=== PATIENT | female | born 1955 | race Caucasian/White ===

== ENCOUNTER 2017-11-02 18:53 | Emergency (ER) | payer OTHER ==
[2017-11-02] MEDS ORDERED: NITROGLYCERIN SUBLINGUAL 0.4 MG BOTTLE OF 25. SL ×2 (19:15→21:00)
[2017-11-02 19:31] LABS: ADD MAN DIFF? NO
[2017-11-02] MEDS: ASPIRIN CHEWABLE 81 MG TABLET. PO (19:32)
[2017-11-02 19:34] LABS: BASO % 1 % (0-3); EOS # 0.1 x10^3/uL (0.0-0.7); EOS % 3 % (0-3); HEMATOCRIT 41.9 % (36.0-47.0); HEMOGLOBIN 14.4 g/dL (12.0-15.5); LYMPH # 2.2 x10^3/uL (1.0-4.8); LYMPH % 42 % (24-48); MEAN CORPUSCULAR HEMOGLOBIN 32 pg (25-35); MEAN CORPUSCULAR HGB CONC 34 g/dL (31-37); MEAN CORPUSCULAR VOLUME 92 fL (79-100); MONO # 0.4 x10^3/uL (0.0-1.1); MONO % 8 % (0-9); NEUT # 2.5 x10^3uL (1.8-7.7); NEUT % 47 % (31-73); PLATELET COUNT 270 x10^3/uL (140-400); RED BLOOD COUNT 4.57 x10^6/uL (3.50-5.40); RED CELL DISTRIBUTION WIDTH 12.6 % (11.5-14.5); WHITE BLOOD COUNT 5.4 x10^3/uL (4.0-11.0)
[2017-11-02 19:44] LABS: ANION GAP 8 (6-14); BLOOD UREA NITROGEN 11 mg/dL (7-20); CALCIUM 8.9 mg/dL (8.5-10.1); CARBON DIOXIDE 29 mmol/L (21-32); CHLORIDE 105 mmol/L (98-107); CREATININE 0.8 mg/dL (0.6-1.0); GFR 72.9; GLUCOSE 91 mg/dL (70-99); POTASSIUM 3.6 mmol/L (3.5-5.1); SODIUM 142 mmol/L (136-145)
[2017-11-02 19:45] LABS: PARTIAL THROMBOPLASTIN TIME 27 SEC (24-38); PROTHROMBIN TIME PATIENT 12.9 SEC (11.7-14.0)
[2017-11-02 19:48] LABS: D-DIMER 0.33 ug/mlFEU (0.00-0.50)
[2017-11-02 19:54] LABS: TROPONINI < 0.017 ng/mL (0.000-0.055)
[2017-11-02] MEDS: IV NORMAL SALINE 1000ML BAG 1,000 ML IV (21:04)
== END 2017-11-02 23:04 | disposition home or self-care (01) ==
LOC: ER 18:53
DX: R07.2 Precordial pain (principal); K21.9 Gastro-esophageal reflux disease without esophagitis; J45.909 Unspecified asthma, uncomplicated
CPT/HCPCS: 36415; 71045; 80048; 84484; 85025; 85379; 85610; 85730; 93005; 99285-25; J7030

== ENCOUNTER 2018-05-30 05:16 | Observation (INO) | payer OTHER ==
[~2018-05-30] VITALS: Ht 172.7 cm; Wt 71.7 kg
[~2018-05-30 05:16] MED LIST: ACET325T9 PO; FAMO-63 PO; IBUP200T44 PO; PANT40TA3 PO
[2018-05-30 06:11] LABS: CREATININE 0.8 mg/dL (0.6-1.0); GFR 72.9; POTASSIUM 3.9 mmol/L (3.5-5.1)
[2018-05-30 06:16] LABS: ALBUMIN 3.7 g/dL (3.4-5.0); ALBUMIN/GLOBULIN RATIO 1.2 (1.0-1.7); TOTAL BILIRUBIN 0.4 mg/dL (0.2-1.0); TOTAL PROTEIN 6.8 g/dL (6.4-8.2)
[2018-05-30 06:33] LABS: BASO % 1 % (0-3); EOS # 0.1 x10^3/uL (0.0-0.7); EOS % 3 % (0-3); HEMATOCRIT 42.8 % (36.0-47.0); LYMPH # 1.9 x10^3/uL (1.0-4.8); LYMPH % 47 % (24-48); MEAN CORPUSCULAR HEMOGLOBIN 30 pg (25-35); MEAN CORPUSCULAR HGB CONC 33 g/dL (31-37); MEAN CORPUSCULAR VOLUME 93 fL (79-100); MONO # 0.3 x10^3/uL (0.0-1.1); MONO % 9 % (0-9); NEUT # 1.6 x10^3uL (1.8-7.7); NEUT % 40 % (31-73); PLATELET COUNT 261 x10^3/uL (140-400); RED BLOOD COUNT 4.62 x10^6/uL (3.50-5.40); RED CELL DISTRIBUTION WIDTH 13.1 % (11.5-14.5); WHITE BLOOD COUNT 3.9 x10^3/uL (4.0-11.0)
--- NOTE | 2018-05-30 07:00 | PHYS DOC ---
Past Medical History Past Medical History: Asthma, GERD, Hypertension Past Surgical History: Tonsillectomy Alcohol Use: None Drug Use: None Adult General Chief Complaint Chief Complaint: CHEST PAIN [facility] HPI Patient is a 62 year old female who presents with squeezing chest pain , rated 4/10, that radiates to her neck and left arm. She was awoken by this pain at 0400 this morning and reports intermittent pain x1 week. Reports associated shortness of breath, chest wall tenderness, and belching. Reports she is still recovering from laryngitis in February 2018. Pt was started on Lisinopril for hypertension 2 months ago but developed a cough and is now on Bystolic. Family history is significant for heart disease, father from [place] at 53 and her sister has stents. Denies any fever, chills, nausea or vomiting. Review of Systems Review of Systems Constitutional: Denies fever or chills Eyes: Denies change in visual acuity, redness, or eye pain HENT: Denies nasal congestion, endorses sore throat Respiratory: Denies cough, endorses shortness of breath, dyspnea on exertion Cardiovascular: No additional information not addressed in HPI GI: Denies abdominal pain, nausea, vomiting, bloody stools or diarrhea : Denies dysuria or hematuria Musculoskeletal: Endorses left thoracic back pain, left sided cervical pain Integument: Denies rash or skin lesions Neurologic: Denies headache, focal weakness or sensory changes Endocrine: Denies polyuria or polydipsia All other systems were reviewed and found to be within normal limits, except as documented in this note. Family History Family History Father- [place], at 53 Sister- Coronary angioplasty Current Medications Current Medications Bystolic Allergies Allergies Allergies Coded Allergies Type Severity Reaction Last Updated Verified No Known Drug Allergies 03/16/15 No Physical Exam Physical Exam Constitutional: Well developed, well nourished, no acute distress, non-toxic appearance. HENT: Normocephalic, atraumatic, bilateral external ears normal, oropharynx moist, no oral exudates, nose normal, poor dentition. Eyes: PERRLA, EOMI, conjunctiva normal, no discharge. Neck: Normal range of motion, left sided tenderness to palpation, supple, no stridor, no carotid bruit Cardiovascular:Heart rate regular rhythm, no murmur Lungs & Thorax: Bilateral breath sounds clear to auscultation Abdomen: Bowel sounds normal, soft, no tenderness, no masses, no pulsatile masses. Skin: Warm, dry, no erythema, no rash. Back: No tenderness, no CVA tenderness. Extremities: No tenderness, no cyanosis, no clubbing, ROM intact, no edema. Neurologic: Alert and oriented X 3, normal motor function, normal sensory function, no focal deficits noted. Psychologic: Affect normal, judgement normal, mood normal. Current Patient Data Vital Signs Vital Signs Date Time Temp Pulse Resp B/P (MAP) Pulse Ox O2 Delivery O2 Flow Rate FiO2 05/30/18 07:00 58 19 118/75 (89) 99 Room Air 05/30/18 05:18 97.8 97.8 Lab Values Laboratory Tests Test 05/30/18 05:35 White Blood Count 3.9 x10^3/uL (4.0-11.0) L Red Blood Count 4.62 x10^6/uL (3.50-5.40) Hemoglobin 14.0 g/dL (12.0-15.5) Hematocrit 42.8 % (36.0-47.0) Mean Corpuscular Volume 93 fL (79-100) Mean Corpuscular Hemoglobin 30 pg (25-35) Mean Corpuscular Hemoglobin Concent 33 g/dL (31-37) Red Cell Distribution Width 13.1 % (11.5-14.5) Platelet Count 261 x10^3/uL (140-400) Neutrophils (%) (Auto) 40 % (31-73) Lymphocytes (%) (Auto) 47 % (24-48) Monocytes (%) (Auto) 9 % (0-9) Eosinophils (%) (Auto) 3 % (0-3) Basophils (%) (Auto) 1 % (0-3) Neutrophils # (Auto) 1.6 x10^3uL (1.8-7.7) L Lymphocytes # (Auto) 1.9 x10^3/uL (1.0-4.8) Monocytes # (Auto) 0.3 x10^3/uL (0.0-1.1) Eosinophils # (Auto) 0.1 x10^3/uL (0.0-0.7) Basophils # (Auto) 0.0 x10^3/uL (0.0-0.2) Sodium Level 144 mmol/L (136-145) Potassium Level 3.9 mmol/L (3.5-5.1) Chloride Level 105 mmol/L (98-107) Carbon Dioxide Level 30 mmol/L (21-32) Anion Gap 9 (6-14) Blood Urea Nitrogen 9 mg/dL (7-20) Creatinine 0.8 mg/dL (0.6-1.0) Estimated GFR (Cockcroft-Gault) 72.9 BUN/Creatinine Ratio 11 (6-20) Glucose Level 97 mg/dL (70-99) Calcium Level 9.0 mg/dL (8.5-10.1) Total Bilirubin 0.4 mg/dL (0.2-1.0) Aspartate Amino Transferase (AST) 23 U/L (15-37) Alanine Aminotransferase (ALT) 29 U/L (14-59) Alkaline Phosphatase 110 U/L (46-116) Troponin I Quantitative < 0.017 ng/mL (0.000-0.055) ZY-Arq-J-Type Natriuretic Peptide 29 pg/mL (0-124) Total Protein 6.8 g/dL (6.4-8.2) Albumin 3.7 g/dL (3.4-5.0) Albumin/Globulin Ratio 1.2 (1.0-1.7) Laboratory Tests 05/30/18 05:35 Laboratory Tests 05/30/18 05:35 EKG EKG NSR rate [address] changes Radiology/Procedures Radiology/Procedures [] Impressions: cxr neg acute my read Course & Med Decision Making Course & Med Decision Making Pt is a 62 year old female with past medical history of hypertension, migraines, and GERD and significant family history for coronary artery disease presents with chest pain with some typical features. HEART score of 4. First set of troponin is not elevated, will repeat. EKG is NSR without ST changes. CXR is negative. Possibly GI related with history of GERD and associated belching. Recommend outpatient GI follow-up on reported esophagitis biopsy and cervical lymph nodes. Pulmonary embolism is unlikely. Pertinent Labs and Imaging studies reviewed. (See chart for details) Plan: Admit to tele for monitoring Repeat Troponin Stress test Cardiology consult d/w [place]. [place] Disclaimer Annie Disclaimer This electronic medical record was generated, in whole or in part, using a voice recognition dictation system. Departure Departure Impression: Primary Impression: Chest pain Admitting Physician: Liv Yee Condition: STABLE Referrals: UNKNOWN PCP NAME (PCP) FRANKLIN IRELAND MD May 30, 2018 07:00
[2018-05-30] MEDS ORDERED: ASPIRIN CHEWABLE 81 MG TABLET. PO ONE (07:30)
[2018-05-30] MEDS ORDERED: LIDO:MAALOX 1:1 20 ML SINGLE DOSE. SWSW ONE (07:30)
[2018-05-30 08:20] VITALS: BP 125/69
--- NOTE | 2018-05-30 08:20 | NUR ---
Arrived to unit by cart. Alert and oriented x's 4. VS stable. Placed on tele monitor. No c/o at this time. Oriented to room and controls. Side rails up x's 2 with call light in reach. Spouse at bed side. Assessment completed. Cont. monitor.
[2018-05-30] MEDS ORDERED: PANTOPRAZOLE 40 MG TABLET.DR. PO ONE (10:30)
--- NOTE | 2018-05-30 10:36 | PDOC2 ---
CARDIAC CONSULT DATE OF CONSULT Date of Consult DATE: 05/30/18 TIME: 10:03 REASON FOR CONSULT Reason for Consult: Chest pain REFERRING PHYSICIAN Referring Physician: Kristal SOURCE Source: Chart review, Patient HISTORY OF PRESENT ILLNESS HISTORY OF PRESENT ILLNESS This is a pleasant 62 yo female admitted for complains of chest pain. she has been having reflux for a while. she tried medications but did not work and so she discontinued the med and tried diet modification. It got better but got worse again. She still has this symptom but this following constellation of symptoms are different. She has been feeling tired lately, MOYER using the stairs yesterday and this morning she woke at 4 AM with left chest tightness with left arm heaviness, SOA, diaphoresis and jaw tightness. Her sister had an [place] and her father of SCD in thei 50s. PAST MEDICAL HISTORY Cardiovascular: No pertinent hx Pulmonary: Bronchitis CENTRAL NERVOUS SYSTEM: Other (No pertinent history) GI: GERD Heme/Onc: No pertinent hx Hepatobiliary: No pertinent hx Psych: No pertinent hx Musculoskeletal: Osteoarthritis Infectious disease: No pertinent hx ENT: No pertinent hx Renal/: No pertinent hx, Hematuria, Other (bladder mass) Endocrine: Diabetes (2) Dermatology: No pertinent hx PAST SURGICAL HISTORY Past Surgical History: Tonsillectomy, Other FAMILY HISTORY Family History: Coronary Artery Disease (father and sister in their 50s) SOCIAL HISTORY Smoke: No ALCOHOL: none Drugs: None Lives: with Family CURRENT MEDICATIONS CURRENT MEDICATIONS Current Medications Medications (Trade) Dose Ordered Sig/Rekha Route PRN Reason Start Time Stop Time Status Last Admin Dose Admin Aspirin (Children'S Aspirin) 324 mg 1X ONCE PO 05/30/18 07:30 05/30/18 07:31 DC 05/30/18 07:34 Multi-Ingredient Mouthwash/Gargle (Gi Cocktail) 20 ml 1X ONCE SWSW 05/30/18 07:30 05/30/18 07:31 DC 05/30/18 07:34 ALLERGIES ALLERGIES: Coded Allergies: No Known Drug Allergies (Unverified , 03/16/15) ROS Review of System 14 point ROS evaluated with pertinent positives noted per HPI PHYSICAL EXAM General: Alert, Oriented X3, Cooperative, No acute distress HEENT: Atraumatic, Mucous membr. moist/pink Lungs: Clear to auscultation, Normal air movement Heart: Regular rate (SR/SB), Normal S1, Normal S2, No murmurs Abdomen: Soft, No tenderness Extremities: No cyanosis, No edema Skin: No breakdown, No significant lesion Neuro: Normal speech, Sensation intact Psych/Mental Status: Mental status NL, Mood NL MUSCULOSKELETAL: Osteoarthritic changes both hands VITALS VITALS Vital Signs Date Time Temp Pulse Resp B/P (MAP) Pulse Ox O2 Delivery O2 Flow Rate FiO2 05/30/18 08:00 60 20 135/85 (102) 99 Room Air 05/30/18 05:18 97.8 97.8 LABS Lab: Laboratory Tests Test 05/30/18 05:35 White Blood Count 3.9 x10^3/uL (4.0-11.0) Red Blood Count 4.62 x10^6/uL (3.50-5.40) Hemoglobin 14.0 g/dL (12.0-15.5) Hematocrit 42.8 % (36.0-47.0) Mean Corpuscular Volume 93 fL (79-100) Mean Corpuscular Hemoglobin 30 pg (25-35) Mean Corpuscular Hemoglobin Concent 33 g/dL (31-37) Red Cell Distribution Width 13.1 % (11.5-14.5) Platelet Count 261 x10^3/uL (140-400) Neutrophils (%) (Auto) 40 % (31-73) Lymphocytes (%) (Auto) 47 % (24-48) Monocytes (%) (Auto) 9 % (0-9) Eosinophils (%) (Auto) 3 % (0-3) Basophils (%) (Auto) 1 % (0-3) Neutrophils # (Auto) 1.6 x10^3uL (1.8-7.7) Lymphocytes # (Auto) 1.9 x10^3/uL (1.0-4.8) Monocytes # (Auto) 0.3 x10^3/uL (0.0-1.1) Eosinophils # (Auto) 0.1 x10^3/uL (0.0-0.7) Basophils # (Auto) 0.0 x10^3/uL (0.0-0.2) Sodium Level 144 mmol/L (136-145) Potassium Level 3.9 mmol/L (3.5-5.1) Chloride Level 105 mmol/L (98-107) Carbon Dioxide Level 30 mmol/L (21-32) Anion Gap 9 (6-14) Blood Urea Nitrogen 9 mg/dL (7-20) Creatinine 0.8 mg/dL (0.6-1.0) Estimated GFR (Cockcroft-Gault) 72.9 BUN/Creatinine Ratio 11 (6-20) Glucose Level 97 mg/dL (70-99) Calcium Level 9.0 mg/dL (8.5-10.1) Total Bilirubin 0.4 mg/dL (0.2-1.0) Aspartate Amino Transf (AST/SGOT) 23 U/L (15-37) Alanine Aminotransferase (ALT/SGPT) 29 U/L (14-59) Alkaline Phosphatase 110 U/L (46-116) Troponin I Quantitative < 0.017 ng/mL (0.000-0.055) CH-Fhu-Q-Type Natriuretic Peptide 29 pg/mL (0-124) Total Protein 6.8 g/dL (6.4-8.2) Albumin 3.7 g/dL (3.4-5.0) Albumin/Globulin Ratio 1.2 (1.0-1.7) ECHOCARDIOGRAM ECHOCARDIOGRAM <Conclusion> Normal LV systolic function. EF 65% No significant valvular abnormalities. DATE: 03/17/15 1038 ASSESSMENT/PLAN ASSESSMENT/PLAN 1. Chest pain: suspicious for UA. EKG SR with small QRS amplitude ootherwise no acute changes 2. GERD 3. Family hx of CAD: SCD father in his 50s and sister CAD in her 50s. Recommendations 1. [facility] discussed, risks and benefits but would like to proceed with MPI instead. Trops nml so far. If no significant changes with TTE then will proceed with MPI. 2. Start on PPI. 3. ASA given. TTE. lipids. CORRY KITCHEN APRN May 30, 2018 10:36
--- NOTE | 2018-05-30 10:50 | NUR ---
SS following for discharge planning. SS reviewed pt chart. Pt is from home with spouse and is currently on room air. No discharge needs noted at this time. SS will continue to follow for pending discharge needs.
--- NOTE | 2018-05-30 10:56 | RAD ---
Portable chest, 05/30/2018: HISTORY: Chest pain Comparison is made to a study from 11/02/2017. The heart size and pulmonary vascularity are normal. No pulmonary infiltrate is seen. There is no evidence of pleural fluid. IMPRESSION: No acute cardiopulmonary abnormality is detected. Electronically signed by: Дмитрий Brunner MD (05/30/2018 10:53 AM) [facility]
[2018-05-30 11:25] LABS: CHOLESTEROL/HDL RATIO 5.6
[2018-05-30 11:36] VITALS: BP 133/84
--- NOTE | 2018-05-30 12:28 | CARD ---
MR#: [id number] Date of Study: 05/30/2018 Ordering Physician: CORRY KITCHEN, Referring Physician: GALEN BARTHOLOMEW Tech: Gail Abebe RIYA APPROVED REPORT EXAM: Two-dimensional and M-mode echocardiogram with Doppler and color Doppler. Other Information Quality : GoodHR: 62bpm Rhythm : NSR INDICATION Chest Pain 2D DIMENSIONS RVDd2.6 (2.9-3.5cm)Left Atrium(2D)3.0 (1.6-4.0cm) IVSd0.8 (0.7-1.1cm)Aortic Root(2D)3.1 (2.0-3.7cm) LVDd4.3 (3.9-5.9cm)LVOT Diameter2.0 (1.8-2.4cm) PWd0.8 (0.7-1.1cm)LVDs3.0 (2.5-4.0cm) FS (%) 30.1 %SV47.5 ml LVEF(%)57.6 (>50%) Aortic Valve AoV Peak Torin.124.1cm/sAoV VTI27.1cm AO Peak GR.6.2mmHgLVOT Peak Torin.102.1cm/s AO Mean GR.3mmHgAVA (VMAX)2.57cm2 LAZARA (VTI)2.60cm2 Mitral Valve MV E Zqknccqs81.4cm/sMV DECEL GIAD663ue MV A Xhznysjm61.9cm/sE/A Ratio1.0 MV A Atwgjvry600bv LEFT VENTRICLE The left ventricle is normal size. There is normal left ventricular wall thickness. The left ventricu lar systolic function is normal and the ejection fraction is within normal range. The Ejection Fracti on is 55-60%. There is normal LV segmental wall motion. The left ventricular diastolic function and f illing is normal for age. RIGHT VENTRICLE The right ventricle is normal size. There is normal right ventricular wall thickness. The right ventr icular systolic function is normal. ATRIA The left atrium size is normal. The right atrium size is normal. The interatrial septum is intact wit h no evidence for an atrial septal defect or patent foramen ovale as noted on 2-D or Doppler imaging. AORTIC VALVE The aortic valve is normal in structure and function. The aortic valve is trileaflet. Doppler and Col or Flow revealed trace aortic regurgitation. There is no significant aortic valvular stenosis. MITRAL VALVE The mitral valve is normal in structure and function. There is no evidence of mitral valve prolapse. There is no mitral valve stenosis. Doppler and Color-flow revealed trace mitral regurgitation. TRICUSPID VALVE The tricuspid valve is normal in structure and function. Doppler and Color Flow revealed no tricuspid valve regurgitation noted. There is no tricuspid valve prolapse or vegetation. There is no tricuspid valve stenosis. PULMONIC VALVE Pulmonic valve not well visualized. Doppler and Color Flow revealed no pulmonic valvular regurgitatio n. There is no pulmonic valvular stenosis. GREAT VESSELS The aortic root is normal in size. The ascending aorta is normal in size. The IVC is normal in size a nd collapses >50% with inspiration. PERICARDIAL EFFUSION There is no evidence of significant pericardial effusion. Critical Notification Critical Value: No <Conclusion> The left ventricle is normal size. The left ventricular systolic function is normal and the ejection fraction is within normal range. The Ejection Fraction is 55-60%. There is no significant aortic valvular stenosis. Doppler and Color Flow revealed trace aortic regurgitation. Doppler and Color-flow revealed trace mitral regurgitation. Doppler and Color Flow revealed no tricuspid valve regurgitation noted. Signed by : Sam Huizar MD Electronically Approved : 05/30/2018 12:28:03
--- NOTE | 2018-05-30 14:09 | SSS ---
ADMIT DATE: 05/30/2018 CHIEF COMPLAINT: Chest pain. 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 She presents with chest pain. It has been occurring for several months. She actually was seen here in our Emergency Room several months ago and was sent home with a presumed diagnosis of GERD. The pain still has been bothering her. She rated it as 7/10. She has associated nausea. She tried taking some home meds, but that did not work. Moving makes it worse. I discussed the case with ER physician. We are going to admit the patient and consult Cardiology. They have seen the patient. They have arranged for a stress test this afternoon. If that is negative, we hope to discharge. PAST MEDICAL HISTORY: Asthma, GERD, hypertension, tonsillectomy. ALLERGIES: None. FAMILY HISTORY: Coronary artery disease. SOCIAL HISTORY: She is . She does not drink, smoke or take drugs. 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 MEDICATIONS: Reviewed, please refer to the MRAD. She is on Protonix. REVIEW OF SYSTEMS: GENERAL: No history of weight change, weakness or fevers. SKIN: No bruising, hair changes or rashes. EYES: No blurred, double or loss of vision. NOSE AND THROAT: No history of nosebleeds, hoarseness or sore throat. HEART: No history of palpitations, chest pain or shortness of breath on exertion. LUNGS: Denies cough, hemoptysis, wheezing or shortness of breath. GASTROINTESTINAL: Denies changes in appetite, nausea, vomiting, diarrhea or constipation. GENITOURINARY: No history of frequency, urgency, hesitancy or nocturia. NEUROLOGIC: Denies history of numbness, tingling, tremor or weakness. PSYCHIATRIC: No history of panic, anxiety or depression. ENDOCRINE: No history of heat or cold intolerance, polyuria or polydipsia. EXTREMITIES: Denies muscle weakness, joint pain, pain on walking or stiffness. PHYSICAL EXAMINATION: VITAL SIGNS: Temperature afebrile, pulse 60, respirations 16, blood pressure 125/60, and O2 sat 95% on room air. GENERAL: She is alert, cooperative. Her is present. He seems to be good support for her. HEART: Normal S1, S2. LUNGS: Clear to auscultation. ABDOMEN: Soft, positive bowel sounds. EXTREMITIES: Trace edema. SKIN: No rash. ENDOCRINE: No thyromegaly. LYMPHATICS: No cervical nodes. HEMATOPOIETIC: No bruising. PSYCHIATRIC: She is stable. LABORATORY DATA: White count 3.9. Electrolytes are pending. Troponin is 0.017. EKG shows sinus rhythm. Triglycerides little high at 184, cholesterol is high at 241. ASSESSMENT AND PLAN: Chest pain, rule out coronary artery disease. The patient has been admitted. We will check serial enzymes, serial EKGs. Consult Cardiology. We got a stress test pending. Suspect we may need to start a statin as well. We will resume other home medicines. If stress test is negative, we hope to discharge. DISPOSITION: Home if stress test is negative. ACTIVITY: As tolerated. DIET: Low sodium. MEDICATIONS: Please see the MRAD. TOTAL TIME: 31 minutes. DAMEONL Jared BARTHOLOMEW DO DR: DIONNE/page JOB#: [id number] / [id number]
--- NOTE | 2018-05-30 14:47 | EKG ---
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
--- NOTE | 2018-05-30 16:01 | RAD ---
MR#: [id number] Date of Study: 05/30/2018 Ordering Physician: CORRY KITCHEN, Referring Physician: GAURI URBANO Tech: GERA Frances ARRT (R) (N) APPROVED REPORT Test Type: Exercise Stress Nurse/Tech: Vicky Gordillo R.N. Test Indications: c/p Cardiac History: htn Medications: See Electronic Medical Record Medical History: See Electronic Medical Record Resting ECG: SR Resting Heart Rate: 64 bpm Resting Blood Pressure: 104/66mmHg Pretest Chest Pain: No chest pain Nurse/Tech Notes S1S2, lungs CTA Consent: The procedure was explained to the patient in lay terms. Informed consent was witnessed. Naresh eout was entered into [employer]. History and Stress Test performed by GERA Frances ARRT (R) (N) Stress Symptoms fatigue POST EXERCISE Reason for Termination: Reached target heart rate Target HR: Yes Max HR: 140 bpm 103% of Maximum Predicted HR: 135 bpm Exercise duration: 9:06 min:sec, 4 Stage Exercise capacity: 13.4METs Max Blood Pressure: 140/76mmHg Blood Pressure response to exercise: Normal blood pressure response during stress. Heart Rate response to exercise: wnl Chest Pain: No. Arrhythmia: No. ST Change: No. INTERPRETATION Stress EKG Conclusion: Baseline EKG showed sinus rhythm. No ischemic changes at peak stress. No arr hythmias. Imaging Protocol IMAGE PROTOCOL: Rest Tc-99m/stress Tc-99m 1 day Rest: Stress: Viability: Radiopharm.Tc99m MgjxxzgzeOe11m Sestamibi Iatd22xBb 32mCi Img Date 05/30/2018 05/30/2018 Inj-Img Ghpj20smf. 45min. Rest Admin Site:IV - Right AntecubitalAdministrator:GERA Frances ARRT (R)(N) Stress Admin Site: IV - Right AntecubitalAdministrator: GERA Frances ARRT (Nataliya)(N) STRESS DATA End Diast. Vol.68.0mlAv. Heart Rate76.0bpm End Syst. Vol.6.0mlCO Index BSA0.0L/min Myocardial Ehfo821.0gEject. Begedkwc20.0% Stress Rates Pk. Fill Rate3.41EDV/secLVtime Pk. Fill 112.84msec Pk. Empty Rate5.11ESV/secLVtime Pk. Qydsd395.80msec 1/3 Pk. Fill2.34EDV/sec Stress Scores Regional WT0.00Summed WT0.00 Regional WM0.00Summed WM0.00 Study quality was good. Left Ventricular size was Normal at Rest and Stress. Lung uptake was . Left Ventricular ejection fraction is >80%. The rest and stress images show normal perfusion, normal contraction and thickening. LV Perf. Quant 17 Seg. SSS2.00 17 Seg. SRS1.00 17 Seg. SDS1.00 Stress Defect Extent (% LAD)0.00Rest Defect Extent (% LAD)0.00Rev. Defect Extent (% LAD)0.00 Stress Defect Extent (% LCX) 2.50Rest Defect Extent (% LCX)5.00Rev. Defect Extent (% LCX)0.00 Stress Defect Extent (% RCA)0.00Rest Defect Extent (% RCA)0.00Rev. Defect Extent (% RCA)0.00 Stress Defect Extent (% MACKENZIE)0.90Rest Defect Extent (% MACKENZIE)0.90Rev. Defect Extent (% MACKENZIE)0.00 Conclusion 1. Treadmill exercise cardioisotope stress test did not show any evidence of ischemia or infarct. 2. Normal left ventricular systolic function with ejection fraction >80%. 3. Low risk for cardiac events. Signed by : Soren Cole, Electronically Approved : 05/30/2018 16:00:29
[2018-05-30 16:20] VITALS: BP 96/64
[2018-05-30] MEDS ORDERED: ASPI-630 PO (17:01)
[2018-05-30] MEDS ORDERED: ATOR40TA PO (17:03)
[2018-05-30] MEDS ORDERED: BYSTOLIC5 MG PO ×2 (17:09→17:24)
--- NOTE | 2018-05-30 17:30 | NUR ---
Discharge instructions given. Prescription for Lipitor called to pharmacy. Pt verbalized understanding. Discharge home accompanied by spouse.
[2018-05-30] MEDS ORDERED: ATORVASTATIN CALCIUM 40 MG TABLET. PO SCH (21:00)
[2018-05-31] MEDS ORDERED: PANTOPRAZOLE 40 MG TABLET.DR. PO SCH (07:30)
--- NOTE | 2018-05-31 11:11 | EKG ---
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
== END 2018-05-30 17:30 | disposition home or self-care (01) ==
LOC: ER 05:16 → 2 SOUTH 07:00
PROVIDERS: ADMIT Internal Medicine; ATTEND Internal Medicine
DX: R07.89 Other chest pain (principal); J45.909 Unspecified asthma, uncomplicated; K21.9 Gastro-esophageal reflux disease without esophagitis; I10 Essential (primary) hypertension; E11.9 Type 2 diabetes mellitus without complications; Z82.41 Family history of sudden cardiac death; Z82.49 Family history of ischemic heart disease and other diseases of the circulatory system; Z79.899 Other long term (current) drug therapy
CPT/HCPCS: 36415; 71045; 78452; 80053; 80061; 83880; 84484; 85025; 93005; 93017; 93306; 99284; A9500; G0378; 96374; 96376; G0379

== ENCOUNTER → 2018-08-07 | Day surgery (SDC) | payer OTHER ==
[~2018-08-07] MED LIST changes: +ASPI-630 PO; +ATOR40TA PO; +BYSTOLIC5 MG PO; +HYDROmorphone 2 MG/ML VIAL IV PRN; +IV RINGERS,LACTATED 1000ML 1,000 ML IV SCH; +LIDOCAINE 1% PF 2 ML VIAL. ID PRN; +LIDOCAINE 2% PF 5 ML VIAL. ONE; +MORPHINE SULFATE 2 MG/ML VIAL. IV PRN; +ONDANSETRON PF 4 MG/2 ML VIAL. IV PRN; +PROCHLORPERAZINE 10 MG/2 ML VIAL. IV PRN; +PROPOFOL 20 ML IV ONE; +fentaNYL PF VIAL 100 MCG/2 ML VIAL IV PRN
[2018-08-07 16:37] VITALS: BP 124/70
--- NOTE | 2018-08-08 04:45 | CONS ---
DATE OF CONSULTATION: 08/07/2018 REFERRING PHYSICIAN: Juan Larry. REASON FOR CONSULTATION: GERD, dysphagia and halitosis. HISTORY OF PRESENT ILLNESS: A 62-year-old female with past medical history significant for hypertension, GERD, 1, para 1, is seen with some food impactions mainly in the subcervical and upper esophagus. There has been some complaints of halitosis as well. With this, she requests additional evaluation or medications [id number] have been taken without improvement. No change in her weight. Risk factors for reflux are positive for caffeine, but negative for alcohol and nicotine. With continued issues, requests additional input. PAST MEDICAL HISTORY: GERD, hypertension, 1, para 1, status post tonsillectomy. ALLERGIES: None. MEDICATIONS: Include Bystolic 5 mg daily. SOCIAL HISTORY: Does not drink or smoke at this time. FAMILY HISTORY: Significant for organic heart disease with her mother, diabetes with her grandmother, and stroke with her grandmother. REVIEW OF SYSTEMS: As per records. PHYSICAL EXAMINATION: GENERAL: Reveals a well-nourished, well-developed female who is alert, cooperative, in no acute distress. VITAL SIGNS: Temperature is 97.4, pulse 52, respiratory rate 16. HEENT: Normocephalic and atraumatic head. Pupils and extraocular muscles are not tested. Sclerae anicteric. NECK: Supple. LUNGS: Clear. CARDIOVASCULAR: Reveals an S1, S2 without S3, S4 or appreciable murmur. ABDOMEN: Reveals a soft abdomen, normal bowel sounds without appreciable hepatosplenomegaly. EXTREMITIES: Reveals no cyanosis, clubbing, edema. IMPRESSION: Dysphagia with gastroesophageal reflux disease and halitosis. Etiology is to be determined. Differential includes gastroesophageal reflux disease, Teran's, achalasia, possible Zenker's diverticulum, traction diverticulum. We will recommend upper endoscopy with possible biopsy and/or dilatation. Risks and benefits of procedure including risk of hemorrhage and perforation have been discussed with the patient. If the diverticulum is encountered in the esophagram, an ear, nose and throat consultation for definitive surgical extraction would be recommended. TOM ARBOLEDA MD DR: THOMAS/page JOB#: [id number] / [id number]
== END | disposition home or self-care (01) ==
LOC: SURG 14:42
PROVIDERS: ATTEND Internal Medicine Gastroenterology
DX: K22.2 Esophageal obstruction (principal); K29.50 Unspecified chronic gastritis without bleeding; K21.9 Gastro-esophageal reflux disease without esophagitis; I10 Essential (primary) hypertension; Z98.890 Other specified postprocedural states; Z79.899 Other long term (current) drug therapy; Z82.49 Family history of ischemic heart disease and other diseases of the circulatory system; Z83.3 Family history of diabetes mellitus
CPT/HCPCS: 43235; 43450; J2001; J2704; 43233

== ENCOUNTER → 2019-03-13 | Outpatient (CLI) | payer OTHER ==
[2018-08-07 16:37] VITALS: BP 124/70
[~2019-03-13] MED LIST changes: -HYDROmorphone 2 MG/ML VIAL IV PRN; -IV RINGERS,LACTATED 1000ML 1,000 ML IV SCH; -LIDOCAINE 1% PF 2 ML VIAL. ID PRN; -LIDOCAINE 2% PF 5 ML VIAL. ONE; -MORPHINE SULFATE 2 MG/ML VIAL. IV PRN; -ONDANSETRON PF 4 MG/2 ML VIAL. IV PRN; -PANT40TA3 PO; +PANT40TA77 PO; -PROCHLORPERAZINE 10 MG/2 ML VIAL. IV PRN; -PROPOFOL 20 ML IV ONE; -fentaNYL PF VIAL 100 MCG/2 ML VIAL IV PRN
--- NOTE | 2019-03-13 14:51 | RAD ---
EXAM: CT Head without IV contrast CLINICAL HISTORY: Chronic headache COMPARISON: None. TECHNIQUE: Routine CT of the head without contrast. Soft tissues and bone windows were reviewed. PQRS compliance statement - One or more of the following individualized dose reduction techniques were utilized for this study: 1. Automated exposure control 2. Adjustment of the mA and/or kV according to patient size 3. Use of iterative reconstruction technique FINDINGS: There is no evidence of hemorrhage, mass or extra-axial fluid collection. Nguyen-white differentiation is maintained with no evidence of edema. Subcortical and periventricular foci of white matter hypoattenuation likely changes of chronic small vessel disease. There is no mass effect or shift of the intracranial structures. The ventricles, basilar cisterns and cortical sulci are normal in size and configuration for the patients stated age. The cerebellum and brainstem are unremarkable. The calvarium demonstrates no evidence of fracture or focal lesion. There is normal aeration of the visualized paranasal sinuses and mastoid air cells. The visualized portions of the orbits are normal. IMPRESSION: 1. No evidence for acute intracranial process. 2. White matter changes, likely chronic small vessel disease. Electronically signed by: Colin Ojeda MD (03/13/2019 2:48 PM) [id number]
== END | disposition home or self-care (01) ==
LOC: CT 14:36
PROVIDERS: ATTEND Family Medicine
DX: R90.82 White matter disease, unspecified (principal)
CPT/HCPCS: 70450

== ENCOUNTER 2019-08-17 23:33 | Emergency (ER) | payer OTHER ==
[~2019-08-17] VITALS: Ht 175.3 cm; Wt 70.5 kg
[2019-08-18 00:18] LABS: BASO % 1 % (0-3); EOS # 0.2 x10^3/uL (0.0-0.7); EOS % 3 % (0-3); HEMATOCRIT 40.6 % (36.0-47.0); HEMOGLOBIN 13.7 g/dL (12.0-15.5); LYMPH # 2.5 x10^3/uL (1.0-4.8); LYMPH % 45 % (24-48); MEAN CORPUSCULAR HEMOGLOBIN 31 pg (25-35); MEAN CORPUSCULAR HGB CONC 34 g/dL (31-37); MEAN CORPUSCULAR VOLUME 93 fL (79-100); MONO # 0.5 x10^3/uL (0.0-1.1); MONO % 9 % (0-9); NEUT # 2.3 x10^3/uL (1.8-7.7); NEUT % 42 % (31-73); PLATELET COUNT 249 x10^3/uL (140-400); RED BLOOD COUNT 4.38 x10^6/uL (3.50-5.40); RED CELL DISTRIBUTION WIDTH 12.7 % (11.5-14.5); WHITE BLOOD COUNT 5.5 x10^3/uL (4.0-11.0)
[2019-08-18 00:21] LABS: BILIRUBIN,URINE NEGATIVE (NEG); CLARITY,URINE CLEAR; COLOR,URINE YELLOW; NITRITE,URINE NEGATIVE (NEG); PROTEIN,URINE NEGATIVE (NEG-TRACE); UROBILINOGEN,URINE 0.2 mg/dL (0.2 mg/dL)
[2019-08-18 00:26] LABS: CALCIUM 8.9 mg/dL (8.5-10.1); CREATININE 0.9 mg/dL (0.6-1.0); GFR 63.4; POTASSIUM 4.1 mmol/L (3.5-5.1)
[2019-08-18 00:28] LABS: BACTERIA,URINE 0 /HPF (0-FEW); RBC,URINE OCC /HPF (0-2); WBC,URINE OCC /HPF (0-4)
[2019-08-18 00:29] LABS: SQUAMOUS EPITHELIAL CELL,UR OCC /LPF
[2019-08-18 00:32] LABS: ALBUMIN 3.6 g/dL (3.4-5.0); ALBUMIN/GLOBULIN RATIO 1.2 (1.0-1.7); MAGNESIUM 2.1 mg/dL (1.8-2.4); TOTAL BILIRUBIN 0.2 mg/dL (0.2-1.0); TOTAL PROTEIN 6.6 g/dL (6.4-8.2)
[2019-08-18] MEDS: IV NORMAL SALINE 1000ML BAG 1,000 ML IV SCH (00:45)
[2019-08-18] MEDS: ONDANSETRON PF 4 MG/2 ML VIAL. IVP ONE (00:45)
[2019-08-18] MEDS: MORPHINE SULFATE 2 MG/ML VIAL. IV/SQ PRN (00:46)
--- NOTE | 2019-08-18 00:48 | RAD ---
RS Compliance Statement: One or more of the following individualized dose reduction techniques were utilized for this examination: 1. Automated exposure control 2. Adjustment of the mA and/or kV according to patient size 3. Use of iterative reconstruction technique CT HEAD WITHOUT CONTRAST History: Headache, right-sided tingling. Comparison: CT head without contrast 03/13/2019. Procedure: Axial images are obtained of the head from the skull base through the vertex without IV contrast. Findings: The ventricles and sulci are normal for the patient's age. No mass-effect, midline shift, hemorrhage, extra-axial fluid collection, or obvious acute infarction is identified. Basilar cisterns are patent. Bone windows demonstrate no acute calvarial abnormality. The visualized paranasal sinuses are clear. Mastoid air cells are well aerated. IMPRESSION: No acute intracranial abnormality. Electronically signed by: Jose Luis Chavez MD (08/18/2019 12:45 AM) [id number]
--- NOTE | 2019-08-18 00:59 | PHYS DOC ---
Past Medical History Past Medical History: Asthma, GERD, Hypertension Past Surgical History: Tonsillectomy Smoking Status: Never Smoker Alcohol Use: None Drug Use: None General Adult EDM: Chief Complaint: WEAKNESS/GENERALIZED HPI: HPI: Patient is a 63 year old female who presents with complaint of tingling to her right arm and leg that started earlier today. Patient also indicates that she had a headache yesterday that was an 8 out of 10. She states that currently the headache is gone. Patient also indicates that she has been having some chest discomfort in the center of her chest that she would describe as tightness. She states is been present for the last several hours. She denies any alleviating factors. She states that pain is worse when she lies down flat on her back during which it is a 5 out of 10. Otherwise pain is a 3 out of 10 when she sitting up. Patient denies any nausea, vomiting or diaphoresis.[] Review of Systems: Review of Systems: Constitutional: Denies fever or chills. [] Respiratory: Denies cough or shortness of breath. [] Cardiovascular: Complains of chest pain. [] GI: Denies abdominal pain, nausea, vomiting, bloody stools or diarrhea. [] Integument: Denies rash. [] Neurologic: Denies headache, focal weakness or sensory changes. [] A full 10 point review of systems has been reviewed and is otherwise negative. Heart Score: HEART Score for Chest Pain: HEART Score for Chest Pain Response (Comments) Value History Slighlty/Non-Suspicious 0 ECG Normal 0 Age >45 - < 65 1 Risk Factors 1 or 2 Risk Factors 1 Troponin < Normal Limit 0 Total 2 Risk Factors: Risk Factors: DM, Current or recent (<one month) smoker, HTN, HLP, family history of CAD, obesity. Risk Scores: Score 0 - 3: 2.5% MACE over next 6 weeks - Discharge Home Score 4 - 6: 20.3% MACE over next 6 weeks - Admit for Clinical Observation Score 7 - 10: 72.7% MACE over next 6 weeks - Early Invasive Strategies Current Medications: Current Medications Medications (Trade) Dose Ordered Sig/Rekha Start Time Stop Time Status Last Admin Dose Admin Morphine Sulfate (Morphine Sulfate) 2 mg PRN Q15MIN PRN 08/18/19 00:00 08/18/19 23:59 Ondansetron HCl (Zofran) 4 mg 1X ONCE 5/3/20 00:00 08/18/19 00:45 DC 08/18/19 00:45 4 MG Sodium Chloride 1,000 ml @ 1,000 mls/hr Q1H 08/18/19 00:00 08/18/19 00:59 08/18/19 00:45 1,000 MLS/HR Allergies: Allergies: Allergies Coded Allergies Type Severity Reaction Last Updated Verified No Known Drug Allergies 08/07/18 No Physical Exam: PE: Constitutional: Well developed, well nourished, no acute distress, non-toxic appearance. [] HENT: Normocephalic, atraumatic, bilateral external ears normal, oropharynx moist, no oral exudates, nose normal. [] Eyes: PERRLA, EOMI, conjunctiva normal, no discharge. [] Neck: Normal range of motion, no tenderness, supple, no stridor. [] Cardiovascular: Regular rate and rhythm[] Lungs & Thorax: Bilateral breath sounds clear to auscultation [] Abdomen: Bowel sounds normal, soft, no tenderness. [] Skin: Warm, dry, no erythema, no rash. [] Extremities: No tenderness, no cyanosis, no clubbing, ROM intact, no edema. [] Neurologic: Alert and oriented X 3, no focal deficits noted. [] Current Patient Data: Labs: Laboratory Tests Test 08/17/19 23:53 White Blood Count 5.5 x10^3/uL (4.0-11.0) Red Blood Count 4.38 x10^6/uL (3.50-5.40) Hemoglobin 13.7 g/dL (12.0-15.5) Hematocrit 40.6 % (36.0-47.0) Mean Corpuscular Volume 93 fL (79-100) Mean Corpuscular Hemoglobin 31 pg (25-35) Mean Corpuscular Hemoglobin Concent 34 g/dL (31-37) Red Cell Distribution Width 12.7 % (11.5-14.5) Platelet Count 249 x10^3/uL (140-400) Neutrophils (%) (Auto) 42 % (31-73) Lymphocytes (%) (Auto) 45 % (24-48) Monocytes (%) (Auto) 9 % (0-9) Eosinophils (%) (Auto) 3 % (0-3) Basophils (%) (Auto) 1 % (0-3) Neutrophils # (Auto) 2.3 x10^3/uL (1.8-7.7) Lymphocytes # (Auto) 2.5 x10^3/uL (1.0-4.8) Monocytes # (Auto) 0.5 x10^3/uL (0.0-1.1) Eosinophils # (Auto) 0.2 x10^3/uL (0.0-0.7) Basophils # (Auto) 0.0 x10^3/uL (0.0-0.2) Urine Collection Type Unknown Urine Color Yellow Urine Clarity Clear Urine pH 6.0 (<5.0-8.0) Urine Specific [place] <=1.005 (1.000-1.030) Urine Protein Negative mg/dL (NEG-TRACE) Urine Glucose (UA) Negative mg/dL (NEG) Urine Ketones (Stick) Negative mg/dL (NEG) Urine Blood Negative (NEG) Urine Nitrite Negative (NEG) Urine Bilirubin Negative (NEG) Urine Urobilinogen Dipstick 0.2 mg/dL (0.2 mg/dL) Urine Leukocyte Esterase Negative (NEG) Urine RBC Occ /HPF (0-2) Urine WBC Occ /HPF (0-4) Urine Squamous Epithelial Cells Occ /LPF Urine Bacteria 0 /HPF (0-FEW) Sodium Level 140 mmol/L (136-145) Potassium Level 4.1 mmol/L (3.5-5.1) Chloride Level 103 mmol/L (98-107) Carbon Dioxide Level 34 mmol/L (21-32) H Anion Gap 3 (6-14) L Blood Urea Nitrogen 8 mg/dL (7-20) Creatinine 0.9 mg/dL (0.6-1.0) Estimated GFR (Cockcroft-Gault) 63.4 BUN/Creatinine Ratio 9 (6-20) Glucose Level 92 mg/dL (70-99) Calcium Level 8.9 mg/dL (8.5-10.1) Magnesium Level 2.1 mg/dL (1.8-2.4) Total Bilirubin 0.2 mg/dL (0.2-1.0) Aspartate Amino Transferase (AST) 20 U/L (15-37) Alanine Aminotransferase (ALT) 23 U/L (14-59) Alkaline Phosphatase 92 U/L (46-116) Troponin I Quantitative < 0.017 ng/mL (0.000-0.055) VT-Ylq-V-Type Natriuretic Peptide 29 pg/mL (0-124) Total Protein 6.6 g/dL (6.4-8.2) Albumin 3.6 g/dL (3.4-5.0) Albumin/Globulin Ratio 1.2 (1.0-1.7) Lipase 178 U/L (73-393) Laboratory Tests 08/17/19 23:53 Laboratory Tests 08/17/19 23:53 EKG: EKG: EKG demonstrates sinus rhythm with rate of 58.[] Radiology/Procedures: Radiology/Procedures: [] Impression: PROCEDURE: CT HEAD WO CONTRAST PQRS Compliance Statement: One or more of the following individualized dose reduction techniques were utilized for this examination: 1. Automated exposure control 2. Adjustment of the mA and/or kV according to patient size 3. Use of iterative reconstruction technique CT HEAD WITHOUT CONTRAST History: Headache, right-sided tingling. Comparison: CT head without contrast 03/13/2019. Procedure: Axial images are obtained of the head from the skull base through the vertex without IV contrast. Findings: The ventricles and sulci are normal for the patient's age. No mass-effect, midline shift, hemorrhage, extra-axial fluid collection, or obvious acute infarction is identified. Basilar cisterns are patent. Bone windows demonstrate no acute calvarial abnormality. The visualized paranasal sinuses are clear. Mastoid air cells are well aerated. IMPRESSION: No acute intracranial abnormality. Electronically signed by: Jose Luis Chavez MD (08/18/2019 12:45 AM) [id number] Course & Med Decision Making: Course & Med Decision Making Pertinent Labs and Imaging studies reviewed. (See chart for details) [] Dragon Disclaimer: Dragon Disclaimer: This electronic medical record was generated, in whole or in part, using a voice recognition dictation system. Departure Departure Impression: Primary Impression: Paresthesia Additional Impression: Atypical chest pain Disposition: 01 HOME, SELF-CARE Condition: STABLE Referrals: SCAR JOSEPH DO (PCP) Patient Instructions: Chest Pain (Nonspecific), Paresthesia CARMELITA HEDRICK Jr., DO August 18, 2019 00:59
[2019-08-18 01:15] VITALS: BP 114/74
--- NOTE | 2019-08-18 01:22 | RAD ---
PORTABLE CHEST 1V Clinical Indication: Chest pain AP chest 05/30/2018 Comparison: None. Findings: The cardiomediastinal silhouette is normal. Lungs are clear. There is no pneumothorax. No pleural effusion is appreciated. No acute bone abnormality. IMPRESSION: No acute cardiopulmonary process. Electronically signed by: Jose Luis Chavez MD (08/18/2019 1:19 AM) [id number]
== END 2019-08-18 01:55 | disposition home or self-care (01) ==
LOC: ER 23:33
DX: R07.89 Other chest pain (principal); R51 Headache; R20.2 Paresthesia of skin; J45.909 Unspecified asthma, uncomplicated; K21.9 Gastro-esophageal reflux disease without esophagitis; I10 Essential (primary) hypertension; Z90.89 Acquired absence of other organs
CPT/HCPCS: 36415; 70450; 71045; 80053; 81001; 83690; 83735; 83880; 84484; 85025; 96374; 99285; J2405; J7030

== ENCOUNTER 2019-12-27 20:23 | Observation (INO) | payer OTHER ==
[~2019-12-27] VITALS: Ht 172.7 cm; Wt 76.9 kg
--- NOTE | 2019-12-27 20:45 | PHYS DOC ---
Past Medical History Past Medical History: Asthma, GERD, Hypertension Past Surgical History: Tonsillectomy Smoking Status: Never Smoker Alcohol Use: None Drug Use: None General Adult EDM: Chief Complaint: CHEST PAIN HPI: HPI: Patient is a 64 year old female with intermittent chest pain that began this afternoon. Pain is a stabbing pain in the left lower chest that radiates to the back that is brief in nature last up to a minute. Pain said several episodes today currently she has 5 out of 10 discomfort as she just had an episode. Patient says associated with diaphoresis at times and shortness of breath but no nausea vomiting or dizziness. Patient denies any recent illnesses such as fevers chills cough vomiting or diarrhea. Review of Systems: Review of Systems: Constitutional: Denies fever or chills. [] Eyes: Denies change in visual acuity. [] HENT: Denies nasal congestion or sore throat. [] Respiratory: Denies cough but has shortness of breath. [] Cardiovascular: Complains of chest pain but no edema GI: Denies abdominal pain, nausea, vomiting, bloody stools or diarrhea. [] : Denies dysuria. [] Musculoskeletal: Denies back pain or joint pain. [] Integument: Denies rash. [] Neurologic: Denies headache, focal weakness or sensory changes. [] Endocrine: Denies polyuria or polydipsia. [] Lymphatic: Denies swollen glands. [] Psychiatric: Denies depression or anxiety. [] Heart Score: HEART Score for Chest Pain: HEART Score for Chest Pain Response (Comments) Value History Moderately Suspicious 1 ECG Nonspecific Repolarizatio 1 Age >45 - < 65 1 Risk Factors 1 or 2 Risk Factors 1 Total 4 Risk Factors: Risk Factors: DM, Current or recent (<one month) smoker, HTN, HLP, family history of CAD, obesity. Risk Scores: Score 0 - 3: 2.5% MACE over next 6 weeks - Discharge Home Score 4 - 6: 20.3% MACE over next 6 weeks - Admit for Clinical Observation Score 7 - 10: 72.7% MACE over next 6 weeks - Early Invasive Strategies Family History: Family History: Dad with early coronary disease before 55 Allergies: Allergies: Allergies Coded Allergies Type Severity Reaction Last Updated Verified No Known Drug Allergies 08/07/18 No Physical Exam: PE: Constitutional: Well developed, well nourished, no acute distress, non-toxic appearance. [] HENT: Normocephalic, atraumatic, bilateral external ears normal, no trismus nose normal. [] Eyes: PERRLA, EOMI, conjunctiva normal, no discharge. [] Neck: Normal range of motion, no tenderness, supple, no stridor. [] Cardiovascular:Heart rate regular rhythm, peripheral pulses intact no murmur, cap refill brisk Lungs & Thorax: Bilateral breath sounds clear, no respiratory distress Abdomen: Bowel sounds normal, soft, no tenderness, no masses, no pulsatile masses. [] Skin: Warm, dry, no erythema, no rash. [] Back: No tenderness, no CVA tenderness. [] Extremities: No tenderness, no cyanosis, no clubbing, ROM intact, no edema. [] Neurologic: Alert and oriented X 3, normal motor function, normal sensory function, no focal deficits noted. [] Psychologic: Affect normal, judgement normal, mood normal. [] Current Patient Data: Labs: Laboratory Tests Test 12/27/19 20:30 White Blood Count 5.7 x10^3/uL Red Blood Count 4.65 x10^6/uL Hemoglobin 14.7 g/dL Hematocrit 43.2 % Mean Corpuscular Volume 93 fL Mean Corpuscular Hemoglobin 32 pg Mean Corpuscular Hemoglobin Concent 34 g/dL Red Cell Distribution Width 13.0 % Platelet Count 248 x10^3/uL Neutrophils (%) (Auto) 42 % Lymphocytes (%) (Auto) 45 % Monocytes (%) (Auto) 10 % Eosinophils (%) (Auto) 3 % Basophils (%) (Auto) 1 % Neutrophils # (Auto) 2.4 x10^3/uL Lymphocytes # (Auto) 2.5 x10^3/uL Monocytes # (Auto) 0.5 x10^3/uL Eosinophils # (Auto) 0.2 x10^3/uL Basophils # (Auto) 0.0 x10^3/uL Prothrombin Time 12.1 SEC Prothromb Time International Ratio 0.9 Activated Partial Thromboplast Time 23 SEC Sodium Level 143 mmol/L Potassium Level 3.3 mmol/L Chloride Level 104 mmol/L Carbon Dioxide Level 33 mmol/L Anion Gap 6 Blood Urea Nitrogen 7 mg/dL Creatinine 0.8 mg/dL Estimated GFR (Cockcroft-Gault) 72.4 BUN/Creatinine Ratio 9 Glucose Level 97 mg/dL Calcium Level 9.2 mg/dL Magnesium Level 2.4 mg/dL Total Bilirubin 0.2 mg/dL Aspartate Amino Transf (AST/SGOT) 24 U/L Alanine Aminotransferase (ALT/SGPT) 26 U/L Alkaline Phosphatase 107 U/L Troponin I Quantitative < 0.017 ng/mL QZ-Ocb-V-Type Natriuretic Peptide 65 pg/mL Total Protein 7.4 g/dL Albumin 3.9 g/dL Albumin/Globulin Ratio 1.1 Lipase 157 U/L Current Medications Medications (Trade) Dose Ordered Sig/Rekha Route PRN Reason Start Time Stop Time Status Last Admin Dose Admin Aspirin (Aspirin Chewable) 324 mg 1X ONCE PO 12/27/19 21:00 12/27/19 21:01 DC 12/27/19 21:22 Potassium Chloride (Klor-Con) 20 meq 1X ONCE PO 12/27/19 22:00 12/27/19 22:01 12/27/19 21:23 Multi-Ingredient Mouthwash/Gargle (Gi Cocktail) 20 ml 1X ONCE SWSW 12/27/19 22:00 12/27/19 22:01 Ondansetron HCl (Zofran) 4 mg PRN Q8HRS PRN IV NAUSEA/VOMITING 1st choice 12/27/19 21:30 12/28/19 21:29 Ondansetron HCl (Zofran) 4 mg PRN Q4HRS PRN IV NAUSEA/VOMITING 12/27/19 21:45 UNV Zolpidem Tartrate (Ambien) 5 mg PRN QHS PRN PO INSOMNIA 12/27/19 21:45 UNV Acetaminophen (Tylenol) 650 mg PRN Q4HRS PRN PO TEMP OVER 100.4F OR MILD PAIN 12/27/19 21:45 UNV Diphenhydramine HCl (Benadryl) 25 mg PRN Q4HRS PRN IVP ITCHING 12/27/19 21:45 UNV Docusate Sodium (Colace) 100 mg PRN BID PRN PO HARD STOOLS 12/27/19 21:45 UNV Albuterol Sulfate (Ventolin Neb Soln) 2.5 mg PRN Q4HRS PRN NEB SHORTNESS OF BREATH 12/27/19 21:45 UNV Guaifenesin (Robitussin) 200 mg PRN Q4HRS PRN PO COUGH 12/27/19 21:45 UNV Lorazepam (Ativan) 0.5 mg PRN Q4HRS PRN PO ANXIETY / AGITATION 12/27/19 21:45 UNV Enoxaparin Sodium (Lovenox 40mg Syringe) 40 mg Q24H SQ 12/27/19 21:45 UNV Vital Signs: Vital Signs Date Time Temp Pulse Resp B/P (MAP) Pulse Ox O2 Delivery O2 Flow Rate FiO2 12/27/19 20:25 98.1 60 20 135/81 (99) 100 Room Air 98.1 EKG: EKG: EKG interpreted by me sinus bradycardia with a rate of 56 left axis deviation nonspecific ST changes. Normal QTC [] Radiology/Procedures: Radiology/Procedures: [][facility] [address] [place] [address] IMAGING REPORT Signed PATIENT: DHAVAL WIGGINS ACCOUNT: [id number] : 1955 LOCATION: ER AGE: 64 SEX: F EXAM STATUS: REG ER ORD. PHYSICIAN: TOM MONTALVO MD REASON: Chest pain radiating to left shoulder today PROCEDURE: PORTABLE CHEST 1V Exam: Chest one view INDICATION: Chest pain radiating to left shoulder today TECHNIQUE: Frontal view of the chest Comparisons: 06/20/2019 FINDINGS: The cardiomediastinal silhouette and pulmonary vessels are within normal limits. The lung and pleural spaces are clear. IMPRESSION: No acute cardiopulmonary process. Electronically signed by: Donna Milian MD (12/27/2019 9:20 PM) [id number] DICTATED and SIGNED BY: DONNA MILIAN MD DATE: 12/27/192119 Course & Med Decision Making: Course & Med Decision Making Pertinent Labs and Imaging studies reviewed. (See chart for details) [] 64-year-old female presents patient has a heart score of 4 and will be admitted for longer rule out CO and I discussed with Dr. Hawthorne who will admit While patient was waiting for bed she decided that she did not want to be admitted and she felt better after GI cocktail. I discussed at length with patient her heart score 4 and suggested admission for rule out CO. Patient has full mental capacity and understands the risk of going home including missed myocardial infarction and patient still elects to go home. Patient requesting a Bystolic prescription as well. I also placed on a PPI. Upon further review the minutes after I wrote her some prescriptions patient now says she will stay Annie Disclaimer: Annie Disclaimer: This electronic medical record was generated, in whole or in part, using a voice recognition dictation system. Departure Departure Impression: Primary Impression: Chest pain Disposition: ADMITTED INPATIENT Admitting Physician: PREM GIBSON) Condition: STABLE Referrals: SCAR JOSEPH DO (PCP) 2-3 DAYS Patient Instructions: Chest Pain (Nonspecific), Esophageal Spasm Additional Instructions: EMERGENCY DEPARTMENT GENERAL DISCHARGE INSTRUCTIONS THANK YOU for coming to [facility] Emergency Department (ED) today and trusting us with your care. We trust that you had a positive experience in our Emergency Department. If you wish to speak to the department Management you can contact the department administrator at . YOUR FOLLOW UP INSTRUCTIONS ARE FOLLOWS: Do you have a private doctor? If you do not have a private doctor, please ask for a resource list of physicians or clinics that may be able to assist you with follow up care. The Emergency Physician has interpreted your x-rays. The X-ray specialist will also review them. If there is a change in the findings you will be notified in 48 hours when at all possible. A lab test or lab culture may have been done, your results will be reviewed and you will be notified if you need a change in treatment. ADDITIONAL INSTRUCTIONS AND INFORMATION Your care today has been supervised by a physician who is specially trained in emergency care. Many problems require more than one evaluation for a complete diagnosis and treatment. We recommend that you schedule your follow up appointment as recommended to ensure complete treatment of your illness or injury. If you are unable to obtain follow up care and continue to have a problem, or if your condition worsens we recommend that you return to the ED. We are not able to safely determine your condition over the phone nor are we able to give sound medical advice over the phone. For these safety reasons, if you call for medical advice we will ask you to come to the ED for further evaluation If you have any questions regarding these discharge instructions please call the ED at . SAFETY INFORMATION In the interest of safety, wellness, and injury prevention; we encourage you to wear your seatbelt, if you smoke; quit smoking, and we encourage your family to use protective helmet for bicycling and other sporting events that present an increased risk for head injury. IF YOUR SYMPTOMS WORSEN OR NEW SYMPTOMS DEVELOP, OR YOU HAVE CONCERNS ABOUT YOUR CONDITION; OR IF YOUR CONDITION WORSENS WHILE YOU ARE WAITING FOR YOUR FOLLOW UP APPOINTMENT; EITHER CONTACT YOUR PRIMARY CARE DOCTOR, THE PHYSICIAN WHOSE NAME AND NUMBER YOU WERE GIVEN, OR RETURN TO THE ED IMMEDIATELY. Scripts Nebivolol Hcl (BYSTOLIC) 10 Mg Tablet 10 MG PO DAILY, #30 TAB Prov: TOM MONTALVO MD 12/27/19 Esomeprazole Magnesium (NEXIUM CAPSULE) 40 Mg Capsule. 1 CAP PO DAILY, #30 CAP 5 Refills Prov: TOM MONTALVO MD 12/27/19 Justicifation of Admission Dx: Justifications for Admission: Justification of Admission Dx: Yes (CHEST PAIN) TOM MONTALVO MD Dec 27, 2019 20:45
[2019-12-27 20:52] LABS: BASO % 1 % (0-3); EOS # 0.2 x10^3/uL (0.0-0.7); EOS % 3 % (0-3); HEMATOCRIT 43.2 % (36.0-47.0); HEMOGLOBIN 14.7 g/dL (12.0-15.5); LYMPH # 2.5 x10^3/uL (1.0-4.8); LYMPH % 45 % (24-48); MEAN CORPUSCULAR HEMOGLOBIN 32 pg (25-35); MEAN CORPUSCULAR HGB CONC 34 g/dL (31-37); MEAN CORPUSCULAR VOLUME 93 fL (79-100); MONO # 0.5 x10^3/uL (0.0-1.1); MONO % 10 % (0-9); NEUT # 2.4 x10^3/uL (1.8-7.7); NEUT % 42 % (31-73); PLATELET COUNT 248 x10^3/uL (140-400); RED BLOOD COUNT 4.65 x10^6/uL (3.50-5.40); WHITE BLOOD COUNT 5.7 x10^3/uL (4.0-11.0)
[2019-12-27] MEDS ORDERED: ASPIRIN CHEWABLE 81 MG TABLET. PO ONE (21:00)
[2019-12-27 21:01] LABS: PROTHROMBIN TIME PATIENT 12.1 SEC (11.7-14.0)
[2019-12-27 21:03] LABS: CALCIUM 9.2 mg/dL (8.5-10.1); CREATININE 0.8 mg/dL (0.6-1.0); GFR 72.4; POTASSIUM 3.3 mmol/L (3.5-5.1)
[2019-12-27 21:08] LABS: ALBUMIN 3.9 g/dL (3.4-5.0); ALBUMIN/GLOBULIN RATIO 1.1 (1.0-1.7); MAGNESIUM 2.4 mg/dL (1.8-2.4); TOTAL BILIRUBIN 0.2 mg/dL (0.2-1.0); TOTAL PROTEIN 7.4 g/dL (6.4-8.2)
--- NOTE | 2019-12-27 21:23 | RAD ---
Exam: Chest one view INDICATION: Chest pain radiating to left shoulder today TECHNIQUE: Frontal view of the chest Comparisons: 06/20/2019 FINDINGS: The cardiomediastinal silhouette and pulmonary vessels are within normal limits. The lung and pleural spaces are clear. IMPRESSION: No acute cardiopulmonary process. Electronically signed by: Donna Diaz MD (12/27/2019 9:20 PM) [id number]
[2019-12-27] MEDS ORDERED: ONDANSETRON PF 4 MG/2 ML VIAL. IV PRN ×2 (21:30→21:45)
[2019-12-27] MEDS ORDERED: DOCUSATE SODIUM 100 MG CAPSULE. PO PRN (21:45)
[2019-12-27] MEDS ORDERED: ACETAMINOPHEN 325 MG TABLET. PO PRN (21:45)
[2019-12-27] MEDS ORDERED: diphenhydrAMINE 50 MG/ML VIAL IVP PRN (21:45)
[2019-12-27] MEDS ORDERED: ALBUTEROL SULFATE 2.5 MG/3 ML NEBU. NEB PRN (21:45)
[2019-12-27] MEDS ORDERED: guaiFENesin ORAL 200 MG/10 ML LIQUID. PO PRN (21:45)
[2019-12-27] MEDS ORDERED: LORazepam 0.5 MG TABLET PO PRN (21:45)
[2019-12-27] MEDS ORDERED: ZOLPIDEM 5 MG TABLET. PO PRN (21:45)
[2019-12-27] MEDS ORDERED: LIDO:MAALOX 1:1 20 ML SINGLE DOSE. SWSW ONE (22:00)
[2019-12-27] MEDS ORDERED: ENOXAPARIN 40 MG/0.4 ML SYRINGE. SQ SCH (22:00)
[2019-12-27] MEDS ORDERED: POTASSIUM CHLORIDE 20 MEQ TABLET.ER. PO ONE (22:00)
[2019-12-27] MEDS ORDERED: BYSTOLIC10 MG PO (22:47)
[2019-12-27] MEDS ORDERED: ESOM40CA PO (22:47)
[2019-12-28] MEDS ORDERED: BYSTOLIC10 MG PO ×2 (00:41→12:34)
[2019-12-28 03:00] VITALS: BP 99/58
[2019-12-28 06:26] LABS: CALCIUM 8.7 mg/dL (8.5-10.1); CREATININE 0.8 mg/dL (0.6-1.0); GFR 72.4; POTASSIUM 4.3 mmol/L (3.5-5.1)
[2019-12-28 07:59] VITALS: BP 99/52
[2019-12-28] MEDS ORDERED: PANTOPRAZOLE 40 MG TABLET.DR. PO SCH (08:00)
[2019-12-28] MEDS ORDERED: METOPROLOL TART IMMED RELEASE 50 MG TABLET. PO SCH (09:00)
[2019-12-28] MEDS ORDERED: LIDOCAINE (700MG/PATCH) PATCH. TD SCH (09:45)
[2019-12-28 11:59] VITALS: BP 109/76
[2019-12-28] MEDS ORDERED: ACET325T9 PO (12:34)
[2019-12-28] MEDS ORDERED: LIDO700A21 TD (12:34)
--- NOTE | 2019-12-28 12:35 | DISCH ---
DISCHARGE INSTRUCTIONS Condition on Discharge Condition on Discharge: Stable Activity After Discharge Activity Instructions for Disc: Activity as tolerated, Avoid exertion Exercise Instruction after Dis: Progress as tolerated Driving Instructions after Dis: Do not drive today Weight Bearing Status after Di: No restrictions Diet after Discharge Diet after Discharge: Cardiac Diet Texture: Regular Liquid Texture: Thin Liquid Contacting the DR. after DC Call your doctor for: If your condition worsens Follow-Up Follow up with: PCP within 1 week of discharge Follow Up With: Cardiology as needed Treatment/Equipment after DC Adaptive Equipment Issued: None LEANN MAYS MD Dec 28, 2019 12:35
--- NOTE | 2019-12-28 14:09 | NUR ---
Discharge Note: SUJATHA WIGGINS BYPRO Discharge instructions and discharge home medications reviewed with Patient and a copy given. All questions have been answered and understanding verbalized. The following instructions and handouts were given: Patient given education regarding new medications and follow ups. Discontinued lines and drains: Iv removed per protocol. Patient discharged home, picked up by family member.
--- NOTE | 2019-12-28 15:04 | PDOC2 ---
CONSULT Date of Consult Date of Consult DATE: 12/28/19 TIME: 14:56 Reason for Consult Reason for Consult: chest pain Referring Physician Referring Physician: Dr. Lynch Identification/Chief Complaint Chief Complaint chest pain Source Source: Chart review, Patient History of Present Illness Reason for Visit: The patient is a 64-year-old female who was admitted through the emergency room for episodes of chest pain over the past several days. The patient stated her pain was increasing. She does have a history of gastroesophageal reflux disease and a GI cocktail did improve the discomfort. EKG showed no acute ischemic changes. Chest x-ray showed no acute process. She has been monitored overnight and her pain has improved. This morning on examination her pain is increased with palpation. She has had 3- troponin levels. She overall is feeling significantly better today. Also her potassium which was low at 3.3 has been replaced. Past Medical History Cardiovascular: No pertinent hx, HTN Pulmonary: Asthma, Bronchitis CENTRAL NERVOUS SYSTEM: Other GI: GERD Heme/Onc: No pertinent hx Hepatobiliary: No pertinent hx Psych: No pertinent hx Musculoskeletal: Osteoarthritis Infectious disease: No pertinent hx Renal/: No pertinent hx, Hematuria, Other Endocrine: Diabetes Past Surgical History Past Surgical History: Tonsillectomy, Other Family History Family History: Coronary Artery Disease Social History No ALCOHOL: none Drugs: None Lives: with Family Current Problem List Problem List Problems Medical Problems: (1) Chest pain Status: Acute Current Medications Current Medications Current Medications Aspirin (Aspirin Chewable) 324 mg 1X ONCE PO Last administered on 12/27/19at 21:22; Start 12/27/19 at 21:00; Stop 12/27/19 at 21:01; Status DC Potassium Chloride (Klor-Con) 20 meq 1X ONCE PO Last administered on 12/27/19at 21:23; Start 12/27/19 at 22:00; Stop 12/27/19 at 22:01; Status DC Multi-Ingredient Mouthwash/Gargle (Gi Cocktail) 20 ml 1X ONCE SWSW Last administered on 12/27/19at 21:55; Start 12/27/19 at 22:00; Stop 12/27/19 at 22:01; Status DC Ondansetron HCl (Zofran) 4 mg PRN Q8HRS PRN IV NAUSEA/VOMITING 1st choice; Start 12/27/19 at 21:30; Stop 12/27/19 at 21:44; Status DC Ondansetron HCl (Zofran) 4 mg PRN Q4HRS PRN IV NAUSEA/VOMITING 1st choice; Start 12/27/19 at 21:45; Stop 12/28/19 at 14:12; Status DC Zolpidem Tartrate (Ambien) 5 mg PRN QHS PRN PO INSOMNIA; Start 12/27/19 at 21:45; Stop 12/28/19 at 14:12; Status DC Acetaminophen (Tylenol) 650 mg PRN Q4HRS PRN PO TEMP OVER 100.4F OR MILD PAIN Last administered on 12/28/19at 11:45; Start 12/27/19 at 21:45; Stop 12/28/19 at 14:12; Status DC Diphenhydramine HCl (Benadryl) 25 mg PRN Q4HRS PRN IVP ITCHING; Start 12/27/19 at 21:45; Stop 12/28/19 at 14:12; Status DC Docusate Sodium (Colace) 100 mg PRN BID PRN PO HARD STOOLS; Start 12/27/19 at 21:45; Stop 12/28/19 at 14:12; Status DC Albuterol Sulfate (Ventolin Neb Soln) 2.5 mg PRN Q4HRS PRN NEB SHORTNESS OF BREATH; Start 12/27/19 at 21:45; Stop 12/28/19 at 14:12; Status DC Guaifenesin (Robitussin) 200 mg PRN Q4HRS PRN PO COUGH; Start 12/27/19 at 21:45; Stop 12/28/19 at 14:12; Status DC Lorazepam (Ativan) 0.5 mg PRN Q4HRS PRN PO ANXIETY / AGITATION; Start 12/27/19 at 21:45; Stop 12/28/19 at 14:12; Status DC Enoxaparin Sodium (Lovenox 40mg Syringe) 40 mg Q24H SQ ; Start 12/27/19 at 22:00; Stop 12/28/19 at 14:12; Status DC Pantoprazole Sodium (Protonix) 40 mg DAILYAC PO Last administered on 12/28/19at 09:51; Start 12/28/19 at 08:00; Stop 12/28/19 at 14:12; Status DC Metoprolol Tartrate (Lopressor) 50 mg BID PO ; Start 12/28/19 at 09:00; Stop 12/28/19 at 14:12; Status DC Lidocaine (Lidoderm) 1 patch DAILY TD ; Start 12/29/19 at 09:00; Stop 12/28/19 at 09:45; Status DC Miscellaneous (Lidoderm Patch Removal) 1 ea QHS MC ; Start 12/28/19 at 21:00; Stop 12/28/19 at 14:12; Status DC Lidocaine (Lidoderm) 1 patch DAILY TD Last administered on 12/28/19at 09:45; Start 12/28/19 at 09:45; Stop 12/28/19 at 14:12; Status DC Active Scripts Active Lidocaine PATCH (Lidocaine) 1 Each Adh..patch 1 Patch TD DAILY 30 Days Tylenol (Acetaminophen) 325 Mg Tablet 650 Mg PO PRN Q4HRS PRN 30 Days Bystolic (Nebivolol) 10 Mg Tablet 10 Mg PO HS 30 Days Nexium Capsule (Esomeprazole Magnesium) 40 Mg Capsule. 1 Cap PO DAILY Allergies Allergies: Coded Allergies: No Known Drug Allergies (Unverified , 08/07/18) ROS Cardiovascular: yes Chest Pain Physical Exam General: No acute distress HEENT: Atraumatic Lungs: Clear to auscultation Heart: Regular rate Abdomen: Normal bowel sounds Vitals VITALS Vital Signs Date Time Temp Pulse Resp B/P (MAP) Pulse Ox O2 Delivery O2 Flow Rate FiO2 12/28/19 11:59 97.9 58 18 109/76 (87) 97 Room Air 97.9 Labs Labs Laboratory Tests Test 12/27/19 20:30 12/28/19 05:55 12/28/19 11:45 White Blood Count 5.7 x10^3/uL (4.0-11.0) Red Blood Count 4.65 x10^6/uL (3.50-5.40) Hemoglobin 14.7 g/dL (12.0-15.5) Hematocrit 43.2 % (36.0-47.0) Mean Corpuscular Volume 93 fL (79-100) Mean Corpuscular Hemoglobin 32 pg (25-35) Mean Corpuscular Hemoglobin Concent 34 g/dL (31-37) Red Cell Distribution Width 13.0 % (11.5-14.5) Platelet Count 248 x10^3/uL (140-400) Neutrophils (%) (Auto) 42 % (31-73) Lymphocytes (%) (Auto) 45 % (24-48) Monocytes (%) (Auto) 10 % (0-9) Eosinophils (%) (Auto) 3 % (0-3) Basophils (%) (Auto) 1 % (0-3) Neutrophils # (Auto) 2.4 x10^3/uL (1.8-7.7) Lymphocytes # (Auto) 2.5 x10^3/uL (1.0-4.8) Monocytes # (Auto) 0.5 x10^3/uL (0.0-1.1) Eosinophils # (Auto) 0.2 x10^3/uL (0.0-0.7) Basophils # (Auto) 0.0 x10^3/uL (0.0-0.2) Prothrombin Time 12.1 SEC (11.7-14.0) Prothromb Time International Ratio 0.9 (0.8-1.1) Activated Partial Thromboplast Time 23 SEC (24-38) Sodium Level 143 mmol/L (136-145) 144 mmol/L (136-145) Potassium Level 3.3 mmol/L (3.5-5.1) 4.3 mmol/L (3.5-5.1) Chloride Level 104 mmol/L (98-107) 109 mmol/L (98-107) Carbon Dioxide Level 33 mmol/L (21-32) 30 mmol/L (21-32) Anion Gap 6 (6-14) 5 (6-14) Blood Urea Nitrogen 7 mg/dL (7-20) 7 mg/dL (7-20) Creatinine 0.8 mg/dL (0.6-1.0) 0.8 mg/dL (0.6-1.0) Estimated GFR (Cockcroft-Gault) 72.4 72.4 BUN/Creatinine Ratio 9 (6-20) Glucose Level 97 mg/dL (70-99) 95 mg/dL (70-99) Calcium Level 9.2 mg/dL (8.5-10.1) 8.7 mg/dL (8.5-10.1) Magnesium Level 2.4 mg/dL (1.8-2.4) Total Bilirubin 0.2 mg/dL (0.2-1.0) Aspartate Amino Transf (AST/SGOT) 24 U/L (15-37) Alanine Aminotransferase (ALT/SGPT) 26 U/L (14-59) Alkaline Phosphatase 107 U/L (46-116) Troponin I Quantitative < 0.017 ng/mL (0.000-0.055) < 0.017 ng/mL (0.000-0.055) < 0.017 ng/mL (0.000-0.055) YB-Ons-F-Type Natriuretic Peptide 65 pg/mL (0-124) Total Protein 7.4 g/dL (6.4-8.2) Albumin 3.9 g/dL (3.4-5.0) Albumin/Globulin Ratio 1.1 (1.0-1.7) Lipase 157 U/L (73-393) Laboratory Tests Test 12/27/19 20:30 12/28/19 05:55 12/28/19 11:45 White Blood Count 5.7 x10^3/uL (4.0-11.0) Red Blood Count 4.65 x10^6/uL (3.50-5.40) Hemoglobin 14.7 g/dL (12.0-15.5) Hematocrit 43.2 % (36.0-47.0) Mean Corpuscular Volume 93 fL (79-100) Mean Corpuscular Hemoglobin 32 pg (25-35) Mean Corpuscular Hemoglobin Concent 34 g/dL (31-37) Red Cell Distribution Width 13.0 % (11.5-14.5) Platelet Count 248 x10^3/uL (140-400) Neutrophils (%) (Auto) 42 % (31-73) Lymphocytes (%) (Auto) 45 % (24-48) Monocytes (%) (Auto) 10 % (0-9) Eosinophils (%) (Auto) 3 % (0-3) Basophils (%) (Auto) 1 % (0-3) Neutrophils # (Auto) 2.4 x10^3/uL (1.8-7.7) Lymphocytes # (Auto) 2.5 x10^3/uL (1.0-4.8) Monocytes # (Auto) 0.5 x10^3/uL (0.0-1.1) Eosinophils # (Auto) 0.2 x10^3/uL (0.0-0.7) Basophils # (Auto) 0.0 x10^3/uL (0.0-0.2) Prothrombin Time 12.1 SEC (11.7-14.0) Prothromb Time International Ratio 0.9 (0.8-1.1) Activated Partial Thromboplast Time 23 SEC (24-38) Sodium Level 143 mmol/L (136-145) 144 mmol/L (136-145) Potassium Level 3.3 mmol/L (3.5-5.1) 4.3 mmol/L (3.5-5.1) Chloride Level 104 mmol/L (98-107) 109 mmol/L (98-107) Carbon Dioxide Level 33 mmol/L (21-32) 30 mmol/L (21-32) Anion Gap 6 (6-14) 5 (6-14) Blood Urea Nitrogen 7 mg/dL (7-20) 7 mg/dL (7-20) Creatinine 0.8 mg/dL (0.6-1.0) 0.8 mg/dL (0.6-1.0) Estimated GFR (Cockcroft-Gault) 72.4 72.4 BUN/Creatinine Ratio 9 (6-20) Glucose Level 97 mg/dL (70-99) 95 mg/dL (70-99) Calcium Level 9.2 mg/dL (8.5-10.1) 8.7 mg/dL (8.5-10.1) Magnesium Level 2.4 mg/dL (1.8-2.4) Total Bilirubin 0.2 mg/dL (0.2-1.0) Aspartate Amino Transf (AST/SGOT) 24 U/L (15-37) Alanine Aminotransferase (ALT/SGPT) 26 U/L (14-59) Alkaline Phosphatase 107 U/L (46-116) Troponin I Quantitative < 0.017 ng/mL (0.000-0.055) < 0.017 ng/mL (0.000-0.055) < 0.017 ng/mL (0.000-0.055) GS-Pta-P-Type Natriuretic Peptide 65 pg/mL (0-124) Total Protein 7.4 g/dL (6.4-8.2) Albumin 3.9 g/dL (3.4-5.0) Albumin/Globulin Ratio 1.1 (1.0-1.7) Lipase 157 U/L (73-393) Images Images Chest x-ray with no acute processes. Assessment/Plan Assessment/Plan 1. Chest pain. Improved. Patient has ruled out for myocardial infarction with 3- troponins. No acute ischemic changes on EKG. Pain is increased with palpation today. At this time I believe it is reasonable for the patient be discharge from a cardiac viewpoint. We will call her on Monday and set up outpatient follow-up. This was discussed with the patient. 2. Hypokalemia. Initial potassium level of 3.3. Replaced. 3. Hypertension. Controlled. Continue present treatment. 4. History of gastroesophageal reflux disease. Thank you for allowing us to participate in the care of your patient. ABELINO MARTINEZ MD Dec 28, 2019 15:04
[2019-12-28] MEDS ORDERED: PATCH REMOVAL. MC SCH (21:00)
[2019-12-29] MEDS ORDERED: LIDOCAINE (700MG/PATCH) PATCH. TD SCH (09:00)
--- NOTE | 2019-12-31 04:21 | EKG ---
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
--- NOTE | 2019-12-31 09:33 | PDOC1 ---
History and Physical Date of Service: DOS: DATE: 12/28/19 TIME: 09:28 Chief Complaint: Chief Complain: chest pain History of Present Illness: HPI: 64 year old female with intermittent chest pain that began this afternoon. Pain is a stabbing pain in the left lower chest that radiates to the back that is brief in nature last up to a minute. Pain said several episodes today currently she has 5 out of 10 discomfort as she just had an episode. Patient says associated with diaphoresis at times and shortness of breath but no nausea vomiting or dizziness. Patient denies any recent illnesses such as fevers chills cough vomiting or diarrhea. Past Medical/Surgical History: PMH/PSH: GERD HTN Allergies: Allergies: Coded Allergies: No Known Drug Allergies (Unverified , 08/07/18) Family History: Family History: Reveiwed and none reported Social History: Social History: Denies alcohol, smoking, drug abuse Current Medications: Current Medications Current Medications Aspirin (Aspirin Chewable) 324 mg 1X ONCE PO Last administered on 12/27/19at 21:22; Start 12/27/19 at 21:00; Stop 12/27/19 at 21:01; Status DC Potassium Chloride (Klor-Con) 20 meq 1X ONCE PO Last administered on 12/27/19at 21:23; Start 12/27/19 at 22:00; Stop 12/27/19 at 22:01; Status DC Multi-Ingredient Mouthwash/Gargle (Gi Cocktail) 20 ml 1X ONCE SWSW Last administered on 12/27/19at 21:55; Start 12/27/19 at 22:00; Stop 12/27/19 at 22:01; Status DC Ondansetron HCl (Zofran) 4 mg PRN Q8HRS PRN IV NAUSEA/VOMITING 1st choice; Start 12/27/19 at 21:30; Stop 12/27/19 at 21:44; Status DC Ondansetron HCl (Zofran) 4 mg PRN Q4HRS PRN IV NAUSEA/VOMITING 1st choice; Start 12/27/19 at 21:45; Stop 12/28/19 at 14:12; Status DC Zolpidem Tartrate (Ambien) 5 mg PRN QHS PRN PO INSOMNIA; Start 12/27/19 at 21:45; Stop 12/28/19 at 14:12; Status DC Acetaminophen (Tylenol) 650 mg PRN Q4HRS PRN PO TEMP OVER 100.4F OR MILD PAIN Last administered on 12/28/19at 11:45; Start 12/27/19 at 21:45; Stop 12/28/19 at 14:12; Status DC Diphenhydramine HCl (Benadryl) 25 mg PRN Q4HRS PRN IVP ITCHING; Start 12/27/19 at 21:45; Stop 12/28/19 at 14:12; Status DC Docusate Sodium (Colace) 100 mg PRN BID PRN PO HARD STOOLS; Start 12/27/19 at 21:45; Stop 12/28/19 at 14:12; Status DC Albuterol Sulfate (Ventolin Neb Soln) 2.5 mg PRN Q4HRS PRN NEB SHORTNESS OF BREATH; Start 12/27/19 at 21:45; Stop 12/28/19 at 14:12; Status DC Guaifenesin (Robitussin) 200 mg PRN Q4HRS PRN PO COUGH; Start 12/27/19 at 21:45; Stop 12/28/19 at 14:12; Status DC Lorazepam (Ativan) 0.5 mg PRN Q4HRS PRN PO ANXIETY / AGITATION; Start 12/27/19 at 21:45; Stop 12/28/19 at 14:12; Status DC Enoxaparin Sodium (Lovenox 40mg Syringe) 40 mg Q24H SQ ; Start 12/27/19 at 22:00; Stop 12/28/19 at 14:12; Status DC Pantoprazole Sodium (Protonix) 40 mg DAILYAC PO Last administered on 12/28/19at 09:51; Start 12/28/19 at 08:00; Stop 12/28/19 at 14:12; Status DC Metoprolol Tartrate (Lopressor) 50 mg BID PO ; Start 12/28/19 at 09:00; Stop 12/28/19 at 14:12; Status DC Lidocaine (Lidoderm) 1 patch DAILY TD ; Start 12/29/19 at 09:00; Stop 12/28/19 at 09:45; Status DC Miscellaneous (Lidoderm Patch Removal) 1 ea QHS MC ; Start 12/28/19 at 21:00; Stop 12/28/19 at 14:12; Status DC Lidocaine (Lidoderm) 1 patch DAILY TD Last administered on 12/28/19at 09:45; Start 12/28/19 at 09:45; Stop 12/28/19 at 14:12; Status DC Active Scripts Active Lidocaine PATCH (Lidocaine) 1 Each Adh..patch 1 Patch TD DAILY 30 Days Tylenol (Acetaminophen) 325 Mg Tablet 650 Mg PO PRN Q4HRS PRN 30 Days Bystolic (Nebivolol) 10 Mg Tablet 10 Mg PO HS 30 Days Nexium Capsule (Esomeprazole Magnesium) 40 Mg Capsule. 1 Cap PO DAILY ROS: Review of Systems Review of System REVIEW OF SYSTEMS: GENERAL: Denies weakness SKIN: No bruising, hair changes or rashes. EYES: No blurred, double or loss of vision. NOSE AND THROAT: No history of nosebleeds, hoarseness or sore throat. HEART: No history of palpitations, chest pain or shortness of breath on exertion. LUNGS: Denies cough, hemoptysis, wheezing or shortness of breath. GASTROINTESTINAL: Denies changes in appetite, nausea, vomiting, diarrhea or constipation. GENITOURINARY: No history of frequency, urgency, hesitancy or nocturia. NEUROLOGIC: Denies history of numbness, tingling, or tremor. PSYCHIATRIC: No history of panic, anxiety or depression. ENDOCRINE: No history of heat or cold intolerance, polyuria or polydipsia. EXTREMITIES: Denies joint pain, pain on walking or stiffness. Physical Exam: Physcial Exam: GEN: No apparent distress. Alert and oriented HEENT: Normal cephalic, atraumatic, external auditory canals are patent EYES: Extraocular muscles are intact, pupil are equally round and reactive to light and accommodation MUSCULOSKELETAL: Well developed , well nourished, good range of motion. Palpation of the sternal area reproduces pain. ENDOCRINE: No thyromegaly was palpated LYMPHATICS: No cervical chain or axillary nodes were noted HEMATOPOIETIC: No bruising NECK: Supple, no JVD, no thyromegaly was noted LUNGS: Clear to auscultation in all lung solis without rhonchi or wheezing HEART: RRR, S!, S2 present. Peripheral pulses intact, no obvious murmurs noted ABDOMEN: Soft, nontender. Positive bowel sounds, no organomegaly, normal bowel sounds EXTREMITIES: Without clubbing, cyanosis, or edema. Pedal pulses intact. Negative Homans sign NEUROLOGIC: Normal speech and tone. A&O x 3, moves all extremities, no obvious focal deficits PSYCHIATRIC: Normal affect, normal mood. Stable SKIN: No ulcerations or rashes, good skin turgor, no jaundice VASCULAR: Good capillary refill, neurovascular bundle appears to be intact Labs: Labs: Reveiwed Images: Images CXR No acute pulmonary findings Assessment/Plan Assessment/Plan Chest pain likely due to costochondritis vs GERD troponins negative x3 without EKG changes Cardiology evaluated and ok for discharge cardiology will f/u as an outpatient patient's pain is improved before discharge. The other major events durings patient's hospital stay Justifications for Admission Other Justification LEANN MAYS MD Dec 31, 2019 09:33
== END 2019-12-28 13:15 | disposition home or self-care (01) ==
LOC: ER 20:23 → 5 NORTH 23:46
PROVIDERS: ADMIT Internal Medicine; ATTEND Internal Medicine
DX: R07.89 Other chest pain (principal); J45.909 Unspecified asthma, uncomplicated; K21.9 Gastro-esophageal reflux disease without esophagitis; I10 Essential (primary) hypertension; E87.6 Hypokalemia; E11.9 Type 2 diabetes mellitus without complications; Z98.890 Other specified postprocedural states
CPT/HCPCS: 36415; 71045; 80048; 80053; 83690; 83735; 83880; 84484; 85025; 85610; 85730; 94760; 99284; G0378; 93005; G0379